=== PATIENT | female | born 1980 | race African-American/Black ===

== ENCOUNTER 2018-06-05 09:56 | Emergency (ER) | payer SELFPAY ==
[~2018-06-05] VITALS: Ht 162.6 cm; Wt 55.0 kg
[~2018-06-05 09:56] MED LIST: ALBU17AE2 IH
[2018-06-05] MEDS ORDERED: HYDROCODONE/ACETAMINOPHEN 5-325 MG TABLET PO ONE (10:30)
[2018-06-05] MEDS ORDERED: PERTUSS(ACELL),DIPH,TET VAC/PF 0.5 ML VIAL IM ONE (10:30)
[2018-06-05] MEDS ORDERED: FLUORESCEIN SODIUM 1 MG STRIP ONE (12:08)
[2018-06-05] MEDS ORDERED: PROPARACAINE HCL 0.5% 15 ML OPHTHALMIC SOLUTION OS ONE (12:15)
[2018-06-05 13:55] VITALS: BP 138/81
== END 2018-06-05 13:56 | disposition home or self-care (01) ==
LOC: EMS 09:57
DX: S02.2XXA Fracture of nasal bones, initial encounter for closed fracture (principal); S01.81XA Laceration without foreign body of other part of head, initial encounter; S05.92XA Unspecified injury of left eye and orbit, initial encounter; J45.909 Unspecified asthma, uncomplicated; Y04.0XXA Assault by unarmed brawl or fight, initial encounter; Y93.89 Activity, other specified; Y92.89 Other specified places as the place of occurrence of the external cause; Y99.8 Other external cause status
CPT/HCPCS: 12013; 70450; 70486; 90471; 90715; 99284